=== PATIENT | female | born 1980 | race Caucasian/White ===

== ENCOUNTER 2021-07-19 01:14 | Emergency (ER) | payer BC ==
[~2021-07-19] VITALS: Ht 165.1 cm; Wt 54.5 kg
[2021-07-19 01:51] LABS: BASOPHILS # (AUTO) 0.1 X10'3 (0-0.2); BASOPHILS % (AUTO) 0.8 % (0-1); EOSINOPHILS # (AUTO) 0.1 X10'3 (0-0.9); EOSINOPHILS % (AUTO) 1.2 % (0-6); HEMOGLOBIN 14.1 g/dl (12.0-16.0); LYMPHOCYTES # (AUTO) 2.5 X10'3 (1.1-4.8); LYMPHOCYTES % (AUTO) 21.8 % (21-51); MEAN CORPUSCULAR HEMOGLOBIN 30.9 PG (27.0-31.0); MEAN CORPUSCULAR HGB CONC 33.6 g/dL (33.0-36.5); MEAN CORPUSCULAR VOLUME 91.9 FL (78-98); MEAN PLATELET VOLUME 6.7 FL (7.4-10.4); MONOCYTES % (AUTO) 8.3 % (2-12); NEUTROPHILS # (AUTO) 7.8 X10'3 (1.8-7.7); NEUTROPHILS % (AUTO) 67.9 % (42-75); PLATELET COUNT 315 X10'3 (140-440); RED BLOOD COUNT 4.56 X10'6 (4.20-5.60); RED CELL DISTRIBUTION WIDTH 13.4 % (11.5-14.5); WHITE BLOOD COUNT 11.6 X10'3 (4.5-11.0)
[2021-07-19 02:02] LABS: ALANINE AMINOTRANSFERASE 17 U/L (12-78); ALBUMIN 4.2 G/DL (3.4-5.0); ALBUMIN/GLOBULIN RATIO 1.1 (1.1-1.5); ALKALINE PHOSPHATASE 60 IU/L (46-116); ANION GAP 10 (8-16); ASPARTATE AMINO TRANSFERASE 23 U/L (10-37); BILIRUBIN,TOTAL 0.3 MG/DL (0.1-1.0); BLOOD UREA NITROGEN 13 MG/DL (7-18); CALCIUM 8.8 MG/DL (8.5-10.1); CHLORIDE 105 MMOL/L (99-107); CREATININE 0.93 MG/DL (0.40-0.90); GLUCOSE 102 MG/DL (70-104); POTASSIUM 3.5 MMOL/L (3.5-5.1); SODIUM 140 MMOL/L (135-145); TOTAL CARBON DIOXIDE 25.3 MMOL/L (24-32); TOTAL PROTEIN 7.9 G/DL (6.4-8.2); eGFR 66 ML/MIN
[2021-07-19] MEDS ORDERED: cloNIDine 0.1 mg tablet PO ONE (02:50)
[2021-07-19] MEDS ORDERED: cloNIDine 0.1 mg tablet PO SCH ×2 (02:50→08:00)
[2021-07-19] MEDS ORDERED: HYDROcodone/acetaminophen 10/325mg tab PO ONE (03:30)
[2021-07-19] MEDS ORDERED: amLODIPine 5mg tablet PO ONE (03:30)
[2021-07-19 04:37] VITALS: BP 146/94
[2021-07-19] MEDS ORDERED: AMLO5TAB4 PO (04:38)
--- NOTE | 2021-07-19 04:46 | NUR ---
PT. WAS DISCHARGED AFTER BEING SEEN BY MD. WAS TOLD TO FOLLOW UP WITH PRIMARY CARE PROVIDER IN REGARDS OF HER UNCONTROLLED HYPERTENSION. WENT OVER RX WITH. PT. VERBALIZED UNDERSTANDING OF DISCHARGE INSTRUCTIONS. AMBULATED OUT OF ED WITH NO ISSUES. IV WAS NOT PLACED IN PT. UNABLE TO EDIT DISCHARGE ASSESSMENT.
== END 2021-07-19 04:47 | disposition home or self-care (01) ==
LOC: ER 01:16
DX: I10 Essential (primary) hypertension (principal); R51.9 Headache, unspecified; Z79.899 Other long term (current) drug therapy
CPT/HCPCS: 36415; 71045; 80053; 83880; 84484; 85025; 93005; 99285